=== PATIENT | male | born 1980 | race African-American/Black ===

== ENCOUNTER 2017-09-04 14:34 | Observation (INO) | payer OTHER ==
[2017-09-04] MEDS ORDERED: guaiFENesin 200 MG/10 ML 10 ML UNIT-DOSE CUPS PO ONE (15:59)
--- NOTE | 2017-09-04 15:59 | PDOC ---
History of Present Illness - General History Source: Patient Exam Limitations: No Limitations - History of Present Illness Initial Comments: 09/04/17 16:08 Patient is a 37 y/o M PMH HIV, Hep C, Depression, methamphetamine abuse, who presents to the ED today stating he is seeking rehab for his methamphetamine abuse. He states he recently started using one month ago because his depression relapsed. He currently takes no medication for his depression as he does not like the way the medication makes him feel. He does not feel safe at home; states that he does not get support from his family other than his mother and he is afraid to go home at this time. Patient's mother also called the ED to say how he is "very sick" and his depression is getting worse. She is very concerned about her son. The patient denies suicidal/homicidal, audio/visual hallucinations. He is tearful and quiet talking about his meth abuse. States he has been using daily for the last month. Last dose was last night. He also admits to cold like symptoms including congestion, pleuritic chest pain and cough. <Sharon Matos - Last Filed: 09/04/17 19:28> <Carolina Paulino - Last Filed: 09/07/17 09:42> - General Chief Complaint: Pain Stated Complaint: detox/ CHEST PAIN Time Seen by Provider: 09/04/17 14:56 Past History - Travel Traveled outside of the country in the last 30 days: No Close contact w/someone who was outside of country & ill: No - Past Medical History COPD: No Diabetes: No Liver Disease: Yes (hep c) - Suicide/Smoking/Psychosocial Hx Smoking History: Former smoker Have you smoked in the past 12 months: Yes Number of Cigarettes Smoked Daily: 6 Information on smoking cessation initiated: Yes Hx Alcohol Use: No Drug/Substance Use Hx: Yes (amphatamines) Substance Use Type: Marijuana Hx Substance Use Treatment: No <Sharon Matos - Last Filed: 09/04/17 19:28> <Carolina Paulino - Last Filed: 09/07/17 09:42> - Past Medical History Allergies/Adverse Reactions: Allergies Allergy/AdvReac Type Severity Reaction Status Date / Time No Known Allergies Allergy Verified 09/04/17 14:39 Home Medications: Ambulatory Orders Elviteg/Cob/Emtri/Tenof Alafen [Genvoya (Non-Formulary)] 1 each PO DAILY #30 tab 06/21/17 Review of Systems - Review of Systems Able to Perform ROS?: Yes Comments:: 09/04/17 17:14 CONSTITUTIONAL: Absent: fever, chills, diaphoresis, generalized weakness, malaise, loss of appetite HEENT: Present: rhinorrhea, nasal congestion, Absent: throat pain, throat swelling, difficulty swallowing, mouth swelling, ear pain, eye pain, visual Changes CARDIOVASCULAR: Present: pleuritic chest pain Absent: loss of consciousness, palpitations, irregular heart rate, peripheral edema RESPIRATORY: Present: cough Absent: shortness of breath, dyspnea with exertion, orthopnea, wheezing, stridor, hemoptysis GASTROINTESTINAL: Absent: abdominal pain, abdominal distension, nausea, vomiting, diarrhea, constipation, melena, hematochezia GENITOURINARY: Absent: dysuria, frequency, urgency, hesitancy, hematuria, flank pain, genital pain MUSCULOSKELETAL: Absent: myalgia, arthralgia, joint swelling SKIN: Absent: rash, itching, pallor HEMATOLOGIC/IMMUNOLOGIC: Absent: easy bleeding, easy bruising, lymphadenopathy, frequent infections ENDOCRINE: Absent: unexplained weight gain, unexplained weight loss, heat intolerance, cold intolerance NEUROLOGIC: Absent: headache, focal weakness or paresthesias, dizziness, unsteady gait, seizure, mental status changes, bladder or bowel incontinence PSYCHIATRIC: Present: Depression, substance abuse (meth, weed)Absent: anxiety, suicidal or homicidal ideation, hallucinations. Is the patient limited Citizen Of [place] proficient: No <Sharon Matos - Last Filed: 09/04/17 19:28> *Physical Exam - Vital Signs Last Vital Signs Temp Pulse Resp BP Pulse Ox 97.7 F 88 18 119/79 100 09/04/17 14:41 09/04/17 14:41 09/04/17 14:41 09/04/17 14:41 09/04/17 14:41 - Physical Exam Comments: 09/04/17 16:16 GENERAL: Well developed, well nourished. Awake and alertx3. No acute distress. Speaking in full sentences. Gross L eye swelling HEENT: Normocephalic, atraumatic. PERRLA, EOMI. No conjunctival pallor. Sclera are non- icteric. Moist mucous membranes. Oropharynx is clear. NECK: Supple. Full ROM. No JVD. Carotid pulses 2+ and symmetric, without bruits. No thyromegaly. No lymphadenopathy. CARDIOVASCULAR: Regular rate and rhythm. No murmurs, rubs, or gallops. Distal pulses are 2+ and symmetric. PULMONARY: No evidence of respiratory distress. Lungs clear to auscultation bilaterally. No wheezing, rales or rhonchi. ABDOMINAL: Soft. Non-tender. Non-distended. No rebound or guarding. No organomegaly. Normoactive bowel sounds. MUSCULOSKELETAL Normal range of motion at all joints. No bony deformities or tenderness. No CVA tenderness. EXTREMITIES: No cyanosis. No clubbing. No edema. No calf tenderness. SKIN: Warm and dry. Normal capillary refill. No rashes. No jaundice. NEUROLOGICAL: Alert, awake, appropriate. Cranial nerves 2-12 intact. No deficits to light touch and temperature in face, upper extremities and lower extremities. No motor deficits in the in face, upper extremities and lower extremities. Normoreflexic in the upper and lower extremities. Normal speech. Toes are down- going bilaterally. Gait is normal without ataxia. PSYCHIATRIC: Cooperative. Poor eye contact. Tearful on exam. States he is very depressed and abusing meth. Denies suicidal/homicidal ideation. does not have a plan. <Sharon Matos - Last Filed: 09/04/17 19:28> - Vital Signs Last Vital Signs Temp Pulse Resp BP Pulse Ox 98.5 F 77 18 132/75 99 09/05/17 06:29 09/05/17 10:15 09/05/17 10:15 09/05/17 10:15 09/05/17 10:15 <Carolina Paulino - Last Filed: 09/07/17 09:42> ED Treatment Course - LABORATORY CBC & Chemistry Diagram: 09/04/17 18:10 09/04/17 18:10 <Sharon Matos - Last Filed: 09/04/17 19:28> - LABORATORY CBC & Chemistry Diagram: 09/05/17 06:00 09/05/17 06:00 - ADDITIONAL ORDERS Additional order review: 09/04/17 18:10 RBC 4.02 MCV 93.8 MCHC 34.3 RDW 13.5 MPV 7.7 Neutrophils % 49.9 Lymphocytes % 39.2 Monocytes % 6.8 Eosinophils % 3.1 Basophils % 1.0 - Medications Given in the ED: ED Medications Discontinued Medications Generic Name Dose Route Start Last Admin Trade Name Maci PRN Reason Stop Dose Admin Guaifenesin 10 ml 09/04/17 15:59 09/04/17 16:20 Robitussin - PO 09/04/17 16:00 10 ml ONCE ONE Administration Magnesium Chloride 64 mg 09/05/17 10:00 09/05/17 10:09 Slow-Mag - PO 64 mg DAILY YANELIS Administration Multivit/Folic Acid/Iron 1 tab 09/05/17 10:00 09/05/17 10:09 Vitamins (Sjr) - PO 1 tab DAILY YANELIS Administration <Carolina Paulino - Last Filed: 09/07/17 09:42> Medical Decision Making - Medical Decision Making 09/04/17 16:17 Patient is a 37 y/o M PMH HIV, Hep C, Depression, methamphetamine abuse, who presents to the ED today with worsening depression stating he is seeking rehab for his methamphetamine abuse. Will call [facility] to see if they accept for admission at this time. Pt. presents with cold like symptoms, however, given chest pain, will r/o ACS although less likely. Lung sounds clear b/l. VSS, afebrile. Plan: Basic labs, EKG, CXR, UA, Utox 09/04/17 16:29 [facility] states that they do not accept patients for admission on Sundays. Do not feel comfortable discharging patient home at this time. Will page [facility] for psych consult at this time. 09/04/17 17:48 Call back from [facility]. Case discussed. Given that patient is having increasing depression, and does not feel safe at home with the context of substance abuse; states that he will come and evaluate the patient in the AM. Is concerned may need inpatient admission for his depression. Will page [facility] for ED OBs Lab work is grossly normal, EKG: NSR rate 79. Normal intervals; normal axis. No ST-T wave changes. Normal EKG 09/04/17 18:02 Microblog sent to [facility]. 09/04/17 19:[address] Tadeo RICHTER. Will evaluate the patient. <Sharon Matos - Last Filed: 09/04/17 19:28> *DC/Admit/Observation/Transfer - Discharge Dispostion Admit: Yes <Sharon Matos - Last Filed: 09/04/17 19:28> - Attestations Physician Attestion: I reviewed the case with the mid-level practitioner and agree with the mid- level practitioner's assessment, diagnosis and disposition. <Carolina Paulino - Last Filed: 09/07/17 09:42> Diagnosis at time of Disposition: Methamphetamine abuse Depression Qualifiers: Depression Type: unspecified Qualified Code(s): F32.9 - Major depressive disorder, single episode, unspecified - Discharge Dispostion Disposition: HOME Condition at time of disposition: Stable
[2017-09-04] MEDS ORDERED: guaiFENesin 200 MG/10 ML 10 ML UNIT-DOSE CUPS ONE (16:16)
[2017-09-04 18:21] LABS: EOS % 3.1 % (0-4.5); HEMATOCRIT 37.8 % (35.4-49); LYMPH % 39.2 % (8-40); MCH 32.2 pg (25.7-33.7); MCHC 34.3 g/dl (32.0-35.9); MEAN CELL VOLUME 93.8 fl (80-96); MEAN PLT VOLUME 7.7 fl (7.5-11.1); MONO % 6.8 % (3.8-10.2); NEUT % 49.9 % (42.8-82.8); PLATELET COUNT 221 K/MM3 (134-434); RBC 4.02 M/mm3 (4.00-5.60); RDW 13.5 % (11.9-15.9); WHITE BLOOD COUNT 4.2 K/mm3 (4.0-10.0)
[2017-09-04 18:23] LABS: URINE APPEARANCE CLEAR; URINE BILIRUBIN NEGATIVE (NEGATIVE); URINE BLOOD NEGATIVE (NEGATIVE); URINE COLOR YELLOW; URINE GLUCOSE (UA) NEGATIVE (NEGATIVE); URINE KETONE NEGATIVE (NEGATIVE); URINE LEUK ESTERASE NEGATIVE (NEGATIVE); URINE NITRITE NEGATIVE (NEGATIVE); URINE PROTEIN NEGATIVE (NEGATIVE); URINE UROBILINOGEN 4.0 E.U/dl mg/dL (0.2-1.0)
[2017-09-04 18:35] LABS: COCAINE, UR NEGATIVE ng/ml (CUTOFF=300); METHADONE, UR NEGATIVE ng/ml (CUTOFF=300); OPIATES, URI NEGATIVE ng/ml (CUTOFF=300); PHENCYCLIDINE,URINE NEGATIVE ng/ml (CUTOFF=25); URINE AMPHETAMINES POSITIVE ng/ml (CUTOFF=500); URINE BARBITURATES NEGATIVE ng/ml (CUTOFF=200); URINE BENZODIAZEPINES NEGATIVE ng/ml (CUTOFF=200)
[2017-09-04 18:52] LABS: ALBUMIN 3.2 g/dl (3.4-5.0); ALK PHOS 113 U/L (45-117); ANION GAP 5 (8-16); BILIRUBIN,TOTAL 0.3 mg/dL (0.2-1.0); BLOOD UREA NITROGEN 13 mg/dL (7-18); CALCIUM 7.9 mg/dL (8.5-10.1); CHLORIDE 108 mmol/L (98-107); CO2 29 mmol/L (21-32); GLUCOSE,RANDOM 82 mg/dL (74-106); POTASSIUM 4.1 mmol/L (3.5-5.1); SGOT/AST 42 U/L (15-37); SGPT/ALT 60 U/L (12-78); SODIUM 142 mmol/L (136-145)
--- NOTE | 2017-09-04 19:23 | PN ---
Teaching Attending Note Name of Resident: Gino Carson ATTENDING PHYSICIAN STATEMENT I saw and evaluated the patient. I reviewed the resident's note and discussed the case with the resident. I agree with the resident's findings and plan as documented. SUBJECTIVE: 37 yo M Pmhx. of HIV, Hep. C, depression, meth. abuse, who presents seeking rehab for his meth. abuse. Notes he started abusing one month ago, States that his depression caused him to use. States he doesnt feel safe or supported at home. Denies suicidal/homocidal thoughts, States he has had daily use X1 month. Does not want to hurt himself or anyone else. OBJECTIVE: Physical: VS: Vital Signs Period Temp Pulse Resp BP Sys/Larkin Pulse Ox Last 24 Hr 97.7 F 83-88 18 119-136/79-81 98-100 GEN: NAD, resting in bed, AA0x3 HEENT: NCAT, PERRL, Throat without erythema or exudates CARD: RRR S1, S2 RESP: CTAB ABD: BSx4, NTD to palpation EXT: - C/C/E CBCD WBC 4.2 K/mm3 (4.0-10.0) 09/04/17 18:10 RBC 4.02 M/mm3 (4.00-5.60) 09/04/17 18:10 Hgb 13.0 GM/dL (11.7-16.9) 09/04/17 18:10 Hct 37.8 % (35.4-49) 09/04/17 18:10 MCV 93.8 fl (80-96) 09/04/17 18:10 MCHC 34.3 g/dl (32.0-35.9) 09/04/17 18:10 RDW 13.5 % (11.9-15.9) 09/04/17 18:10 Plt Count 221 K/MM3 (134-434) 09/04/17 18:10 MPV 7.7 fl (7.5-11.1) 09/04/17 18:10 CMP Sodium 142 mmol/L (136-145) 09/04/17 18:10 Potassium 4.1 mmol/L (3.5-5.1) 09/04/17 18:10 Chloride 108 mmol/L (98-107) H 09/04/17 18:10 Carbon Dioxide 29 mmol/L (21-32) 09/04/17 18:10 Anion Gap 5 (8-16) L 09/04/17 18:10 BUN 13 mg/dL (7-18) D 09/04/17 18:10 Creatinine 1.0 mg/dL (0.7-1.3) 09/04/17 18:10 Creat Clearance w eGFR > 60 (>60) 09/04/17 18:10 Random Glucose 82 mg/dL (74-106) 09/04/17 18:10 Calcium 7.9 mg/dL (8.5-10.1) L 09/04/17 18:10 Total Bilirubin 0.3 mg/dL (0.2-1.0) D 09/04/17 18:10 AST 42 U/L (15-37) H D 09/04/17 18:10 ALT 60 U/L (12-78) D 09/04/17 18:10 Alkaline Phosphatase 113 U/L (45-117) D 09/04/17 18:10 Total Protein 7.0 g/dl (6.4-8.2) 09/04/17 18:10 Albumin 3.2 g/dl (3.4-5.0) L 09/04/17 18:10 CARDIAC ENZYMES Creatine Kinase 164 IU/L (39-308) 09/04/17 18:10 Troponin I < 0.02 ng/ml (0.00-0.05) 09/04/17 18:10 Urine Test Results Urine Color Yellow 09/04/17 18:20 Urine Appearance Clear 09/04/17 18:20 Urine pH 5.0 (5.0-8.0) D 09/04/17 18:20 Ur Specific [place] 1.025 (1.001-1.035) 09/04/17 18:20 Urine Protein Negative (NEGATIVE) 09/04/17 18:20 Urine Glucose (UA) Negative (NEGATIVE) 09/04/17 18:20 Urine Ketones Negative (NEGATIVE) 09/04/17 18:20 Urine Blood Negative (NEGATIVE) 09/04/17 18:20 Urine Nitrite Negative (NEGATIVE) 09/04/17 18:20 Urine Bilirubin Negative (NEGATIVE) 09/04/17 18:20 Ur Leukocyte Esterase Negative (NEGATIVE) 09/04/17 18:20 Home Medications Medication Instructions Recorded Elviteg/Cob/Emtri/Tenof Alafen 1 each PO DAILY #30 tab 06/21/17 [Genvoya Tablet] ASSESSMENT AND PLAN: 37 yo M Pmhx. of HIV, Hep. C, depression, meth. abuse, who presents seeking rehab for his meth. abuse, also states he is depressed and feels unsafe at home. 1.) Poly-Substance Abuse - Psych. Consult - 1:1 If suicidal/homicidal ideation 2.) Depression - Meds as per Psych - EKG 3.) HIV - C/W Genvoya - PIO w. Outpt. ID 4.) Dvt Ppx - Ambulate Place in Obs
--- NOTE | 2017-09-04 20:43 | HP ---
CHIEF COMPLAINT: Depression PCP: Franny Hugo HISTORY OF PRESENT ILLNESS: The patient is a 37 yo m w/ PMH HIV and Hep C who comes into the ED seeking detoxification from methamphetamine. The patient states that he had been feeling increasingly depressed at home and has started using methamphetamine over the past month, Patient uses daily with last use being yesterday evening. Patient denies suicidal or homicidal ideation. Patient denies auditory or visual hallucinations. Patient also c/o cough productive of a small amount of green sputum. Patient denies fever, chills, nausea, vomiting, diarrhea or sick contacts. ER course was notable for: (1) CXR negative (2) (3) Recent Travel: none PAST MEDICAL HISTORY: HIV HCV PAST SURGICAL HISTORY: none Social History: Smoking: smokes 6 cigarettes per day for the past 4 months Alcohol: denies Drugs: smokes methamphetamine daily for the past 1 months. Smokes marijuana socially Family History: 2 cousins and father with prostate cancer Allergies No Known Allergies Allergy (Verified 09/04/17 14:39) HOME MEDICATIONS: Home Medications Medication Instructions Recorded Elviteg/Cob/Emtri/Tenof Alafen 1 each PO DAILY #30 tab 06/21/17 [Genvoya Tablet] REVIEW OF SYSTEMS CONSTITUTIONAL: Absent: fever, chills, diaphoresis, generalized weakness, malaise, loss of appetite, weight change HEENT: Absent: rhinorrhea, nasal congestion, throat pain, throat swelling, difficulty swallowing, mouth swelling, ear pain, eye pain, visual changes CARDIOVASCULAR: Absent: chest pain, syncope, palpitations, irregular heart rate, lightheadedness , peripheral edema RESPIRATORY: Absent: cough, shortness of breath, dyspnea with exertion, orthopnea, wheezing, stridor, hemoptysis GASTROINTESTINAL: Absent: abdominal pain, abdominal distension, nausea, vomiting, diarrhea, constipation, melena, hematochezia GENITOURINARY: Absent: dysuria, frequency, urgency, hesitancy, hematuria, flank pain, genital pain MUSCULOSKELETAL: Absent: myalgia, arthralgia, joint swelling, back pain, neck pain SKIN: Absent: rash, itching, pallor HEMATOLOGIC/IMMUNOLOGIC: Absent: easy bleeding, easy bruising, lymphadenopathy, frequent infections ENDOCRINE: Absent: unexplained weight gain, unexplained weight loss, heat intolerance, cold intolerance NEUROLOGIC: Absent: headache, focal weakness or paresthesias, dizziness, unsteady gait, seizure, mental status changes, bladder or bowel incontinence PSYCHIATRIC: Absent: anxiety, depression, suicidal or homicidal ideation, hallucinations. PHYSICAL EXAMINATION Vital Signs - 24 hr 09/04/17 09/04/17 14:41 18:15 Temperature 97.7 F Pulse Rate 88 Pulse Rate [ 83 Apical] Respiratory 18 Rate Blood Pressure 119/79 Blood Pressure 136/81 [Left Arm] O2 Sat by Pulse 100 98 Oximetry (%) GENERAL: Awake, alert, and fully oriented, in no acute distress. HEAD: Normal with no signs of trauma. EYES: Pupils equal, round and reactive to light, extraocular movements intact, sclera anicteric, conjunctiva clear. No lid lag. LUNGS: Breath sounds equal, clear to auscultation bilaterally. No wheezes, and no crackles. No accessory muscle use. HEART: Regular rate and rhythm, normal S1 and S2 without murmur, rub or gallop. ABDOMEN: Soft, nontender, not distended, normoactive bowel sounds, no guarding, no rebound, no masses. No hepatomegaly or splenomegaly. LOWER EXTREMITIES: 2+ pulses, warm, well-perfused. No calf tenderness. No peripheral edema. NEUROLOGICAL: Cranial nerves II-X intact. Normal speech. PSYCHIATRIC: Cooperative. Good eye contact. Appropriate mood and affect. Patient denies suicidal and homicidal ideation. SKIN: Warm, dry, normal turgor, no rashes or lesions noted, normal capillary refill. Laboratory Results - last 24 hr 09/04/17 09/04/17 09/04/17 18:10 18:10 18:10 WBC 4.2 RBC 4.02 Hgb 13.0 Hct 37.8 MCV 93.8 MCH 32.2 MCHC 34.3 RDW 13.5 Plt Count 221 MPV 7.7 Neutrophils % 49.9 Lymphocytes % 39.2 Monocytes % 6.8 Eosinophils % 3.1 Basophils % 1.0 Sodium 142 Potassium 4.1 Chloride 108 H Carbon Dioxide 29 Anion Gap 5 L BUN 13 D Creatinine 1.0 Creat Clearance w eGFR > 60 Random Glucose 82 Calcium 7.9 L Total Bilirubin 0.3 D AST 42 H D ALT 60 D Alkaline Phosphatase 113 D Creatine Kinase 164 Troponin I < 0.02 Total Protein 7.0 Albumin 3.2 L Urine Color Urine Appearance Urine pH Ur Specific [place] Urine Protein Urine Glucose (UA) Urine Ketones Urine Blood Urine Nitrite Urine Bilirubin Urine Urobilinogen Ur Leukocyte Esterase Opiates Screen Methadone Screen Barbiturate Screen Phencyclidine Screen Ur Amphetamines Screen MDMA (Ecstasy) Screen Benzodiazepines Screen Cocaine Screen U Marijuana (THC) Screen 09/04/17 09/04/17 18:10 18:20 WBC RBC Hgb Hct MCV MCH MCHC RDW Plt Count MPV Neutrophils % Lymphocytes % Monocytes % Eosinophils % Basophils % Sodium Potassium Chloride Carbon Dioxide Anion Gap BUN Creatinine Creat Clearance w eGFR Random Glucose Calcium Total Bilirubin AST ALT Alkaline Phosphatase Creatine Kinase Troponin I Total Protein Albumin Urine Color Yellow Urine Appearance Clear Urine pH 5.0 D Ur Specific [place] 1.025 Urine Protein Negative Urine Glucose (UA) Negative Urine Ketones Negative Urine Blood Negative Urine Nitrite Negative Urine Bilirubin Negative Urine Urobilinogen 4.0 e.u/dl Ur Leukocyte Esterase Negative Opiates Screen Negative Methadone Screen Negative Barbiturate Screen Negative Phencyclidine Screen Negative Ur Amphetamines Screen Positive MDMA (Ecstasy) Screen Negative Benzodiazepines Screen Negative Cocaine Screen Negative U Marijuana (THC) Screen Positive ASSESSMENT/PLAN: The patient is a 37 yo m w/ PMH HIV, HCV who comes to the ED seeking detoxification from methamphetamine. #Methamphetamine abuse 2/2 worsening depression -psych consult, aware -Patient denies suicidal or homicidal ideation -detox consult -monitor for signs of withdrawal #HIV positive -last CD4 234 -follows with [facility] -encouraged need for regular outpatient follow up and CD4 counts -encouraged medication compliance. -continue HAART #FEN -no fluids indicated -lytes WNL -regular diet #Prophy -patient ambulatory #Dispo -admit for observation and psych clearance. Visit type - Emergency Visit Emergency Visit: Yes Care time: The patient presented to the Emergency Department on the above date and was hospitalized for further evaluation of their emergent condition. - New Patient This patient is new to me today: Yes Date on this admission: 09/04/17 - Critical Care Critical Care patient: No Hospitalist Screening - Colonoscopy Questionnaire Colonoscopy Questionnaire: Colonoscopy Questionnaire - Patient: 50 - 75 years old and never had a screening colonoscopy: Unknown History of colon or rectal polyps, or CA: Unknown History of IBD, Crohn's disease or UC: Unknown History of abdominal radiation therapy as a child: Unknown - Relative: 1 with colon or rectal CA, or polyps at age 60 or younger: Unknown Colon or rectal CA diagnosed at age 45 or younger: Unknown Multiple relatives with colon or rectal CA: Unknown - Outcome: Screening Result: Negative Screen
[2017-09-05 06:05] LABS: HEMATOCRIT 35.6 % (35.4-49); HEMOGLOBIN 12.1 GM/dL (11.7-16.9); MEAN CELL VOLUME 94.1 fl (80-96); MEAN PLT VOLUME 7.5 fl (7.5-11.1); PLATELET COUNT 220 K/MM3 (134-434); RBC 3.79 M/mm3 (4.00-5.60); RDW 13.5 % (11.9-15.9); WHITE BLOOD COUNT 3.8 K/mm3 (4.0-10.0)
[2017-09-05 06:30] VITALS: TEMP 98.5
[2017-09-05 07:10] LABS: ALBUMIN 2.9 g/dl (3.4-5.0); ALK PHOS 94 U/L (45-117); ANION GAP 4 (8-16); BILIRUBIN,TOTAL 0.3 mg/dL (0.2-1.0); BLOOD UREA NITROGEN 15 mg/dL (7-18); CALCIUM 7.6 mg/dL (8.5-10.1); CHLORIDE 107 mmol/L (98-107); CO2 29 mmol/L (21-32); GLUCOSE,RANDOM 83 mg/dL (74-106); MAGNESIUM 1.5 mg/dL (1.8-2.4); PHOSPHOROUS 3.1 mg/dL (2.5-4.9); POTASSIUM 4.2 mmol/L (3.5-5.1); SGOT/AST 32 U/L (15-37); SGPT/ALT 51 U/L (12-78); SODIUM 140 mmol/L (136-145); TOT PROT 6.2 g/dl (6.4-8.2)
--- NOTE | 2017-09-05 09:14 | CONSULT ---
Consult [facility]ox [facility] Reason for Current Admission/Consult: substance use Referred by:: Bryan remy MD - History History of Present Illness: Patient discharged prior to completion of consultation, discussed with medical residennt, referred to [facility] for either intensive outpatient treatment or inpatient rehab if patient chooses. - Alcohol/Substance Use Hx Alcohol Use: No
[2017-09-05] MEDS ORDERED: ZOLPIDEM TARTRATE 5 MG TABLET PO PRN (09:15)
[2017-09-05] MEDS ORDERED: MAGNESIUM CL 64 MG TABLET.SA PO SCH (10:00)
[2017-09-05] MEDS ORDERED: PATIENT'S OWN MEDICATION (NON-FORMULARY) (Elviteg/Cob/Emtri/Tenof Alafen [Genvoya (Non-For PO SCH (10:00)
[2017-09-05] MEDS ORDERED: PRENATAL VITAMINS W/ FOLIC ACID TABLET (FP) PO SCH (10:00)
--- NOTE | 2017-09-05 10:46 | EKG ---
Test Reason : Blood Pressure : / mmHG Vent. Rate : 079 BPM Atrial Rate : 079 BPM P-R Int : 152 ms QRS Dur : 088 ms QT Int : 384 ms P-R-T Axes : 068 060 055 degrees QTc Int : 440 ms NORMAL SINUS RHYTHM NORMAL ECG WHEN COMPARED WITH ECG OF 21-JUN-2017 15:03, NO SIGNIFICANT CHANGE WAS FOUND Confirmed by CHRIS WEAVER MD ([id number]) on 09/05/2017 10:45:46 AM Referred By: Confirmed By:CHRIS WEAVER MD
[2017-09-05 10:55] VITALS: BP 132/75; PULSE 77; BMI 25.0
--- NOTE | 2017-09-05 11:55 | PN ---
Teaching Attending Note Name of Resident: Chris Abdullahi ATTENDING PHYSICIAN STATEMENT I saw and evaluated the patient. I reviewed the resident's note and discussed the case with the resident. I agree with the resident's findings and plan as documented. SUBJECTIVE: OBJECTIVE: Vital Signs Temperature 98.5 F 09/05/17 06:29 Pulse Rate 77 09/05/17 10:15 Respiratory Rate 18 09/05/17 10:15 Blood Pressure 132/75 09/05/17 10:15 O2 Sat by Pulse Oximetry (%) 99 09/05/17 10:15 CBCD WBC 3.8 K/mm3 (4.0-10.0) L 09/05/17 06:00 RBC 3.79 M/mm3 (4.00-5.60) L 09/05/17 06:00 Hgb 12.1 GM/dL (11.7-16.9) 09/05/17 06:00 Hct 35.6 % (35.4-49) 09/05/17 06:00 MCV 94.1 fl (80-96) 09/05/17 06:00 MCHC 34.0 g/dl (32.0-35.9) 09/05/17 06:00 RDW 13.5 % (11.9-15.9) 09/05/17 06:00 Plt Count 220 K/MM3 (134-434) 09/05/17 06:00 MPV 7.5 fl (7.5-11.1) 09/05/17 06:00 CMP Sodium 140 mmol/L (136-145) 09/05/17 06:00 Potassium 4.2 mmol/L (3.5-5.1) 09/05/17 06:00 Chloride 107 mmol/L (98-107) 09/05/17 06:00 Carbon Dioxide 29 mmol/L (21-32) 09/05/17 06:00 Anion Gap 4 (8-16) L 09/05/17 06:00 BUN 15 mg/dL (7-18) 09/05/17 06:00 Creatinine 1.0 mg/dL (0.7-1.3) 09/05/17 06:00 Creat Clearance w eGFR > 60 (>60) 09/05/17 06:00 Random Glucose 83 mg/dL (74-106) 09/05/17 06:00 Calcium 7.6 mg/dL (8.5-10.1) L 09/05/17 06:00 Total Bilirubin 0.3 mg/dL (0.2-1.0) 09/05/17 06:00 AST 32 U/L (15-37) D 09/05/17 06:00 ALT 51 U/L (12-78) 09/05/17 06:00 Alkaline Phosphatase 94 U/L (45-117) 09/05/17 06:00 Total Protein 6.2 g/dl (6.4-8.2) L 09/05/17 06:00 Albumin 2.9 g/dl (3.4-5.0) L 09/05/17 06:00 CARDIAC ENZYMES Creatine Kinase 164 IU/L (39-308) 09/04/17 18:10 Troponin I < 0.02 ng/ml (0.00-0.05) 09/04/17 18:10 Current Medications Generic Name Dose Route Start Last Admin Trade Name Freq PRN Reason Stop Dose Admin Magnesium Chloride 64 mg 09/05/17 10:00 09/05/17 10:09 Slow-Mag - PO 64 mg DAILY YANELIS Administration Non-Formulary Medication 1 each 09/05/17 10:00 Elviteg/Cob/Emtri/Tenof Alafen [Genvoya (Non-Formulary)] PO DAILY YANELIS Multivit/Folic Acid/Iron 1 tab 09/05/17 10:00 09/05/17 10:09 Vitamins (Sjr) - PO 1 tab DAILY YANELIS Administration Thiamine HCl 100 mg 09/05/17 22:00 Vitamin B1 - PO HS YANELIS Zolpidem Tartrate 10 mg 09/05/17 09:15 Ambien - PO HS PRN INSOMNIA Home Medications Medication Instructions Recorded Elviteg/Cob/Emtri/Tenof Alafen 1 each PO DAILY #30 tab 06/21/17 [Genvoya (Non-Formulary)] ASSESSMENT AND PLAN:
--- NOTE | 2017-09-05 11:56 | CON.PSY ---
Psychiatry Consult Chief Complaint: I Am not depressed, I am not suicidal, you are lying to me. I want to go and see my medical Doctor. I dont want to kill myself. Symptoms: reports: Depressed Mood, Irritability - Previous Psychiatric Treatment Outpatient: None Inpatient: None - Previous Substance Abuse Treatment Outpatient: Less than 6 mos ago Inpatient: None - Reason for Previous Treatment Reason for Previous Treatment: Drug Abuse - Current Medications Current Medications: Active Medications Magnesium Chloride (Slow-Mag -) 64 mg PO DAILY [facility] Last Admin: 09/05/17 10:09 Dose: 64 mg Non-Formulary Medication (Elviteg/Cob/Emtri/Tenof Alafen [Genvoya (Non-Formulary )]) 1 each PO DAILY [facility] Multivit/Folic Acid/Iron ( Vitamins (Sjr) -) 1 tab PO DAILY [facility] Last Admin: 09/05/17 10:09 Dose: 1 tab Thiamine HCl (Vitamin B1 -) 100 mg PO HS [facility] Zolpidem Tartrate (Ambien -) 10 mg PO HS PRN PRN Reason: INSOMNIA - Allergies Allergies: Allergies Allergy/AdvReac Type Severity Reaction Status Date / Time No Known Allergies Allergy Verified 09/04/17 14:39 - Current Living Status Usual Living Arrangement: With Parent - Current Mental Status Evaluation Appearance: Well Groomed Attitude: Uncooperative - Affect Affect: Constrictive Appropriateness: Appropriate to Content - Mood Mood: Angry - Speech/Language Expressive: Coherent - Psychomotor Activity Psychomotor Activity: Normal - Thought Process Thought Process: Intact - Thought Content Hallucinations: Absent Delusions: Absent - Self Perception Self Perception: No Impairment - Cognition Attention: Alert Orientation: Time Memory, Immediate Recall: Intact Memory, Short Term: 3/3 Memory, Remote with Promptin/3 - Concentration Serial Sevens Intact: Yes Simple Calculations Intact: Yes - Abstraction Proverb Interpretation: Intact Judgement: Minimally Impaired - Insight Insight: Intact - Impulse Control Impulse Control: Minimally Impaired - Suicidal Ideation Suicidal Ideation: No - Homicidal Ideation Homicidal Ideation: No Assessment/Plan 1) No acute mental illness. 2) Discharge from ER when medically clear.
--- NOTE | 2017-09-05 14:28 | DS ---
Physical Exam: SUBJECTIVE: Patient seen at bedside. Patient refused history because he states that too many doctors have spoken to him already. OBJECTIVE: Vital Signs Period Temp Pulse Resp BP Sys/Larkin Pulse Ox Last 24 Hr 97.7 F-98.5 F 77-88 18-19 100-136/75-81 98-100 PHYSICAL EXAM Unable to perform due to patient refusal. LABS Laboratory Results - last 24 hr 09/04/17 09/04/17 09/04/17 18:10 18:10 18:10 WBC 4.2 RBC 4.02 Hgb 13.0 Hct 37.8 MCV 93.8 MCH 32.2 MCHC 34.3 RDW 13.5 Plt Count 221 MPV 7.7 Neutrophils % 49.9 Lymphocytes % 39.2 Monocytes % 6.8 Eosinophils % 3.1 Basophils % 1.0 Sodium 142 Potassium 4.1 Chloride 108 H Carbon Dioxide 29 Anion Gap 5 L BUN 13 D Creatinine 1.0 Creat Clearance w eGFR > 60 Random Glucose 82 Calcium 7.9 L Phosphorus Magnesium Total Bilirubin 0.3 D AST 42 H D ALT 60 D Alkaline Phosphatase 113 D Creatine Kinase 164 Creatine Kinase Index 1.8 CK-MB (CK-2) 3.104 Troponin I < 0.02 Total Protein 7.0 Albumin 3.2 L Urine Color Urine Appearance Urine pH Ur Specific [place] Urine Protein Urine Glucose (UA) Urine Ketones Urine Blood Urine Nitrite Urine Bilirubin Urine Urobilinogen Ur Leukocyte Esterase Opiates Screen Methadone Screen Barbiturate Screen Phencyclidine Screen Ur Amphetamines Screen MDMA (Ecstasy) Screen Benzodiazepines Screen Cocaine Screen U Marijuana (THC) Screen 09/04/17 09/04/17 09/05/17 18:10 18:20 06:00 WBC 3.8 L RBC 3.79 L Hgb 12.1 Hct 35.6 MCV 94.1 MCH 32.0 MCHC 34.0 RDW 13.5 Plt Count 220 MPV 7.5 Neutrophils % Lymphocytes % Monocytes % Eosinophils % Basophils % Sodium Potassium Chloride Carbon Dioxide Anion Gap BUN Creatinine Creat Clearance w eGFR Random Glucose Calcium Phosphorus Magnesium Total Bilirubin AST ALT Alkaline Phosphatase Creatine Kinase Creatine Kinase Index CK-MB (CK-2) Troponin I Total Protein Albumin Urine Color Yellow Urine Appearance Clear Urine pH 5.0 D Ur Specific [place] 1.025 Urine Protein Negative Urine Glucose (UA) Negative Urine Ketones Negative Urine Blood Negative Urine Nitrite Negative Urine Bilirubin Negative Urine Urobilinogen 4.0 e.u/dl Ur Leukocyte Esterase Negative Opiates Screen Negative Methadone Screen Negative Barbiturate Screen Negative Phencyclidine Screen Negative Ur Amphetamines Screen Positive MDMA (Ecstasy) Screen Negative Benzodiazepines Screen Negative Cocaine Screen Negative U Marijuana (THC) Screen Positive 09/05/17 06:00 WBC RBC Hgb Hct MCV MCH MCHC RDW Plt Count MPV Neutrophils % Lymphocytes % Monocytes % Eosinophils % Basophils % Sodium 140 Potassium 4.2 Chloride 107 Carbon Dioxide 29 Anion Gap 4 L BUN 15 Creatinine 1.0 Creat Clearance w eGFR > 60 Random Glucose 83 Calcium 7.6 L Phosphorus 3.1 Magnesium 1.5 L Total Bilirubin 0.3 AST 32 D ALT 51 Alkaline Phosphatase 94 Creatine Kinase Creatine Kinase Index CK-MB (CK-2) Troponin I Total Protein 6.2 L Albumin 2.9 L Urine Color Urine Appearance Urine pH Ur Specific [place] Urine Protein Urine Glucose (UA) Urine Ketones Urine Blood Urine Nitrite Urine Bilirubin Urine Urobilinogen Ur Leukocyte Esterase Opiates Screen Methadone Screen Barbiturate Screen Phencyclidine Screen Ur Amphetamines Screen MDMA (Ecstasy) Screen Benzodiazepines Screen Cocaine Screen U Marijuana (THC) Screen HOSPITAL COURSE: Date of Admission:09/04/17 37 year old male with a hx of HIV/HepC presented to the hospital for detox from methamphetamines. Patient is not in any distress and had no medical complaints. Patient's vitals an dlabs were within normal limits. Detox physician was consulted. Patient was cleared for discharged and referred to rehabilitation facilities for further care. Date of Discharge: 09/05/17 Minutes to complete discharge: 35 <Chris Abdullahi - Last Filed: 09/05/17 14:20> Physical Exam: Agree with the resident's plan. can be discharged home and follow up with Rehab. <Harsha Hitchcock - Last Filed: 09/05/17 17:04> Discharge Summary Reason For Visit: DEPRESSION, METHAMPHETAMINE ABUSE Current Active Problems Depression (Acute) Methamphetamine abuse (Acute) - Home Medications Comprehensive Discharge Medication List: Ambulatory Orders Elviteg/Cob/Emtri/Tenof Alafen [Genvoya (Non-Formulary)] 1 each PO DAILY #30 tab 06/21/17 <Chris Abdullahi - Last Filed: 09/05/17 14:20> - Home Medications Comprehensive Discharge Medication List: Ambulatory Orders Elviteg/Cob/Emtri/Tenof Alafen [Genvoya (Non-Formulary)] 1 each PO DAILY #30 tab 06/21/17 <Harsha Hitchcock - Last Filed: 09/05/17 17:04> Condition: Stable - Instructions Diet, Activity, Other Instructions: You were admitted to the hospital for detoxification. You are medically clear for discharge, however we recommend you get placed at a rehabilitation facility. Medical Recommendations: -It is important not to use any more illicit substances, they can be detrimental to your health. -If you experience any chest pain, shortness of breath, fevers, chills, nausea, vomiting, diarrhea, please return to the emergency room immediately. Make an appointment with your primary care physician within 1 month of discharge to follow up on your annual health Referrals: Husam Mota MD [Staff Physician] - Disposition: HOME This patient is new to me today: Yes Date on this admission: 09/05/17 Emergency Visit: Yes ED Registration Date: 09/04/17 Care time: The patient presented to the Emergency Department on the above date and was hospitalized for further evaluation of their emergent condition. Critical Care patient: No - Discharge Referral Referred to [facility] No <Chris Abdullahi - Last Filed: 09/05/17 14:20>
[2017-09-05] MEDS ORDERED: THIAMINE HCL 100 MG TABLET (FP) PO SCH (22:00)
== END 2017-09-05 12:45 | disposition home or self-care (01) ==
LOC: JER 14:34 → JERBED 19:29
PROVIDERS: ADMIT Internal Medicine; ATTEND Internal Medicine
DX: F15.10 Other stimulant abuse, uncomplicated (principal); F32.9 Major depressive disorder, single episode, unspecified; Z21 Asymptomatic human immunodeficiency virus [HIV] infection status; B18.2 Chronic viral hepatitis C; Z87.891 Personal history of nicotine dependence
CPT/HCPCS: 36415; 71046-TC-FY; 80053; 80307; 81003; 82550; 82553; 83735; 84100; 84484; 85025; 85027; 93005; 93010; 99283-25; G0378

== ENCOUNTER 2017-09-08 09:09 | Inpatient (IN) | payer OTHER ==
[2017-09-08 11:20] VITALS: BMI 27.2
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
[2017-09-08] MEDS ORDERED: NICOTINE POLACRILEX 2 MG GUM BUC PRN (11:47)
[2017-09-08] MEDS ORDERED: MENTHOL/PHENOL 1 EACH UD MM PRN (11:47)
[2017-09-08] MEDS ORDERED: MAG HYDROX/AL HYDROX/SIMETH 30 ML UNIT-DOSE CUP PO PRN (11:47)
[2017-09-08] MEDS ORDERED: hydrOXYzine PAMOATE 50 MG CAPSULE (FP) PO PRN (11:47)
[2017-09-08] MEDS ORDERED: IBUPROFEN 400 MG TABLET (FP) PO PRN (11:47)
[2017-09-08] MEDS ORDERED: MAGNESIUM HYDROX 2400MG/30ML ORAL SUSPENSION 30 ML CUP PO PRN (11:47)
[2017-09-08] MEDS ORDERED: guaiFENesin/D-METHORPHAN HB 10 ML UNIT-DOSE CUPS PO PRN (11:47)
[2017-09-08] MEDS ORDERED: LOPERAMIDE HCL 2 MG CAPSULE PO PRN (11:47)
[2017-09-08] MEDS ORDERED: ACETAMINOPHEN 325 MG TABLET (FP) PO PRN (11:47)
[2017-09-08] MEDS ORDERED: P-EPHED 60MG/TRIPROLIDI 2.5MG TABLET PO PRN (11:47)
[2017-09-08] MEDS ORDERED: MAGNESIUM CITRATE 300 ML BOTTLE PO PRN (11:47)
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
[2017-09-08 17:13] LABS: URINE APPEARANCE CLEAR; URINE BILIRUBIN NEGATIVE (NEGATIVE); URINE BLOOD NEGATIVE (NEGATIVE); URINE COLOR YELLOW; URINE GLUCOSE (UA) NEGATIVE (NEGATIVE); URINE KETONE NEGATIVE (NEGATIVE); URINE LEUK ESTERASE NEGATIVE (NEGATIVE); URINE NITRITE NEGATIVE (NEGATIVE); URINE PROTEIN NEGATIVE (NEGATIVE)
[2017-09-08] MEDS: THIAMINE HCL 100 MG TABLET (FP) PO SCH (22:28)
[2017-09-09] MEDS ORDERED: PT OWN MED DRAWER 7, Y5N ONE (08:48)
[2017-09-09] MEDS: PRENATAL VITAMINS W/ FOLIC ACID TABLET (FP) PO SCH (09:43)
[2017-09-09] MEDS: ELVITEG/COB/EMTRI/TENOF (GENVOYA) TABLET (NF) PO SCH (09:43)
--- NOTE | 2017-09-09 09:48 | EKG ---
Test Reason : Blood Pressure : / mmHG Vent. Rate : 078 BPM Atrial Rate : 078 BPM P-R Int : 164 ms QRS Dur : 086 ms QT Int : 366 ms P-R-T Axes : 060 055 044 degrees QTc Int : 417 ms NORMAL SINUS RHYTHM NORMAL ECG WHEN COMPARED WITH ECG OF 04-SEP-2017 16:14, NO SIGNIFICANT CHANGE WAS FOUND Confirmed by RAY BARROW MD ([id number]) on 09/09/2017 9:47:37 AM Referred By: Confirmed By:RAY BARROW MD
[2017-09-09] MEDS: SUVOREXANT 10 MG TABLET PO PRN (21:28)
[2017-09-09] MEDS: THIAMINE HCL 100 MG TABLET (FP) PO SCH (21:28)
[2017-09-10] MEDS: PRENATAL VITAMINS W/ FOLIC ACID TABLET (FP) PO SCH (09:38)
[2017-09-10] MEDS: ELVITEG/COB/EMTRI/TENOF (GENVOYA) TABLET (NF) PO SCH (09:38)
[2017-09-10] MEDS: THIAMINE HCL 100 MG TABLET (FP) PO SCH (21:07)
[2017-09-10] MEDS: SUVOREXANT 10 MG TABLET PO PRN (21:08)
[2017-09-11] MEDS: PRENATAL VITAMINS W/ FOLIC ACID TABLET (FP) PO SCH (09:36)
[2017-09-11] MEDS: ELVITEG/COB/EMTRI/TENOF (GENVOYA) TABLET (NF) PO SCH (09:36)
[2017-09-11] MEDS ORDERED: SUVOREXANT 10 MG TABLET PO PRN (13:14)
[2017-09-11] MEDS: THIAMINE HCL 100 MG TABLET (FP) PO SCH (21:00)
[2017-09-12] MEDS: PRENATAL VITAMINS W/ FOLIC ACID TABLET (FP) PO SCH (09:38)
[2017-09-12] MEDS: ELVITEG/COB/EMTRI/TENOF (GENVOYA) TABLET (NF) PO SCH (09:38)
[2017-09-12] MEDS ORDERED: SUVOREXANT 10 MG TABLET PO PRN ×2 (10:09→21:07)
--- NOTE | 2017-09-12 10:14 | PN ---
Psychiatric Progress Note Vital Signs: Vital Signs Period Temp Pulse Resp BP Sys/Larkin Pulse Ox Last 24 Hr 97.4 F 82 17-18 115/69 Date of Session: 09/12/17 Chief Complaint:: Insomnia HPI: Patient addressing Opoid, Cannabis Dependence comorbid with Nicotine Dependence, Substance-Induced Sleep Disorder ROS: Anemia, HTN, HIV, Hep C Current Medications: Active Medications Generic Name Dose Route Start Last Admin Trade Name Freq PRN Reason Stop Dose Admin Acetaminophen 650 mg 09/08/17 11:47 Tylenol - PO Q4H PRN FEVER Al Hydroxide/Mg Hydroxide 30 ml 09/08/17 11:47 Mylanta Oral Suspension - PO Q6H PRN DYSPEPSIA Elvitegravir/Cobicis/Emtricit/Tenof 1 tab 09/09/17 10:00 09/12/17 09:38 Genvoya (Non-Formulary) PO 1 tab DAILY YANELIS Administration Eucalyptus/Menthol/Phenol/Sorbitol 1 each 09/08/17 11:47 Cepastat Lozenge - MM Q4H PRN SORE THROAT Guaifenesin 10 ml 09/08/17 11:47 Robitussin Dm - PO Q6H PRN COUGH Hydroxyzine Pamoate 50 mg 09/08/17 11:47 Vistaril - PO Q4H PRN AGITATION Ibuprofen 400 mg 09/08/17 11:47 Motrin - PO Q6H PRN Pain level 4-6 Loperamide HCl 4 mg 09/08/17 11:47 Imodium - PO Q6H PRN DIARRHEA Magnesium Citrate 300 ml 09/08/17 11:47 Citroma - PO Q48H PRN CONSTIPATION Magnesium Hydroxide 30 ml 09/08/17 11:47 Milk Of Magnesia - PO DAILY PRN CONSTIPATION Nicotine Polacrilex 2 mg 09/08/17 11:47 09/09/17 14:54 Nicorette Gum - BUC 2 mg Q2H PRN Administration NICOTINE REPLACEMENT RX Multivit/Folic Acid/Iron 1 tab 09/09/17 10:00 09/12/17 09:38 Vitamins (Sjr) - PO 1 tab DAILY YANELIS Administration Pseudoephedrine/Triprolidine 1 combo 09/08/17 11:47 Actifed - PO TID PRN NASAL CONGESTION Thiamine HCl 100 mg 09/08/17 22:00 09/11/17 21:00 Vitamin B1 - PO 100 mg HS YANELIS Administration Current Side Effect: No Lab tests ordered: Yes Lab tests reviewed: Yes Provider note:: Patient reports experiencing difficulty to sleep. 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 despite taking Belsomra 10 mg po HS Total face to face time:: 15 Mental Status Exam - Mental Status Exam Alert and Oriented to: Time, Place, Person Cognitive Function: Fair Patient Appearance: Well Groomed Mood: Hopeful, Euthymic Affect: Appropriate Patient Behavior: Cooperative Speech Pattern: Clear Voice Loudness: Normal Thought Process: Intact, Goal Oriented Thought Disorder: Not Present Hallucinations: Denies Suicidal Ideation: Denies Homicidal Ideation: Denies Insight/Judgement: Fair Sleep: Poorly Appetite: Good Muscle strength/Tone: Normal Gait/Station: Normal Psychiatric Treatment Plan - Problem List (1) Opioid dependence Current Visit: Yes (2) Cannabis dependence Current Visit: Yes (3) Nicotine dependence Current Visit: Yes (4) Substance-induced sleep disorder Current Visit: Yes (5) Chronic hepatitis C Current Visit: No Comment: tasneem 1a; VL [id number], Fibrosure - F0-F1, AFP 8.6 discussed availability of tx, importance of f/u, monitoring, adherence once on tx and need for monitoring while on tx refer for abd u/s (6) H/O syphilis Current Visit: No Comment: per JOSE: treated w/ 1 injection of pcn 07/26/14 at [facility] in [place], [place], initial titers 07/2014- 1:512; 01/01/15 - 1:16 ; 01/20/15 - 1:8. 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 2) Start Belsomra 15 mg po HS prn for insomnia. 3) Monirtor progress
[2017-09-12] MEDS: THIAMINE HCL 100 MG TABLET (FP) PO SCH (21:13)
[2017-09-12] MEDS ORDERED: SUVOREXANT 10 MG, SUVOREXANT 5 MG PO PRN (22:00)
[2017-09-13 06:21] VITALS: BP 118/69; PULSE 90; TEMP 97.8
[2017-09-13] MEDS: ELVITEG/COB/EMTRI/TENOF (GENVOYA) TABLET (NF) PO SCH (09:39)
[2017-09-13] MEDS: PRENATAL VITAMINS W/ FOLIC ACID TABLET (FP) PO SCH (09:39)
--- NOTE | 2017-09-13 12:07 | PN ---
Psychiatric Progress Note Vital Signs: Vital Signs Period Temp Pulse Resp BP Sys/Larkin Pulse Ox Last 24 Hr 97.8 F 90 18-18 118/69 Date of Session: 09/13/17 Chief Complaint:: AMA Discharge Note HPI: Patient addressing Methamphetamine and Cannabis Dependence comorbid with Nicotine Dependence and Substance-Induced Sleep Disorder ROS: Anemia, HIV, Hep C, H/O OR Current Side Effect: No Lab tests ordered: Yes Lab tests reviewed: Yes Provider note:: Patient has not completed this program. He wants to leave against medical advice saying:" This program is not for me. I made a mistake coming here" He was determined to leave despite encouragement to say to complete this program. He is stable for discharge AMA Total face to face time:: 25 Mental Status Exam - Mental Status Exam Alert and Oriented to: Time, Place, Person Cognitive Function: Fair Patient Appearance: Well Groomed Mood: Hopeful, Euthymic Affect: Appropriate Patient Behavior: Cooperative Speech Pattern: Clear Voice Loudness: Normal Thought Process: Intact, Goal Oriented Thought Disorder: Not Present Hallucinations: Denies Suicidal Ideation: Denies Homicidal Ideation: Denies Insight/Judgement: Fair Sleep: Fair Appetite: Good Muscle strength/Tone: Normal Gait/Station: Normal Psychiatric Treatment Plan - Problem List (5) Chronic hepatitis C Comment: tasneem 1a; VL [id number], Fibrosure - F0-F1, AFP 8.6 discussed availability of tx, importance of f/u, monitoring, adherence once on tx and need for monitoring while on tx refer for abd u/s (6) H/O syphilis Comment: per JOSE: treated w/ 1 injection of pcn 07/26/14 at [facility] in [place], [place], initial titers 07/2014- 1:512; 01/01/15 - 1:16; 01/20/15 - 1:8. (7) Human immunodeficiency virus (HIV) disease Comment: on Genv[employer] -resistance assay - pansensitive; check VL discussed adherence, benefits/goals of tx, importance of f/u and monitoring, safe sex, condom use (8) Hypertension Comment: diet controlled (9) Anemia Comment: f/u next visit - further anemia work-up; pt declined labs today (10) Chlamydial infection of genitourinary tract Comment: azithromycin 500mg 2 tabs po x 1; discussed medical sales specialist, se, and ae, avoid unprotected sexual activity for at least 7d after tx, partner notification and tx, safe sex, condom use, prevention of hiv/sti transmission (11) Gonorrhea Comment: Tx - ceftriaxone 250mg IM x 1, azithromycin 500mg 2 tabs po x 1; discussed medical sales specialist, se, and ae, safe sex, condom use, partner notification and tx, avoid sexual activity for 7 d following tx (12) History of OR (myocardial infarction) Comment: requested ecg - declines today; refer to cardio Initial treatment plan: Patient is discharged AMS today
== END 2017-09-13 11:30 | disposition left against medical advice (07) | DRG 770 ==
LOC: YASAS 09:09 → Y3W 12:03
PROVIDERS: ADMIT Psychiatry & Neurology Psychiatry; ATTEND Psychiatry & Neurology Psychiatry
PROC: HZ42ZZZ Group Counseling for Substance Abuse Treatment, Cognitive-Behavioral (ICD-10-PCS; principal; 2017-09-08)
DX: F11.20 Opioid dependence, uncomplicated (principal); F12.20 Cannabis dependence, uncomplicated; F17.210 Nicotine dependence, cigarettes, uncomplicated; F19.282 Other psychoactive substance dependence with psychoactive substance-induced sleep disorder; I10 Essential (primary) hypertension; Z21 Asymptomatic human immunodeficiency virus [HIV] infection status; B18.2 Chronic viral hepatitis C; D64.9 Anemia, unspecified; I25.2 Old myocardial infarction; A56.2 Chlamydial infection of genitourinary tract, unspecified; A54.9 Gonococcal infection, unspecified; Z87.438 Personal history of other diseases of male genital organs
CPT/HCPCS: 81003; 93005; 93010

== ENCOUNTER 2018-03-10 06:47 | Emergency (ER) | payer OTHER ==
[2018-03-10 07:16] VITALS: BP 123/72; PULSE 70; BMI 28.7
--- NOTE | 2018-03-10 07:55 | PDOC ---
Attending Attestation - Resident Resident Name: Max Berrios - ED Attending Attestation I have performed the following: I have examined & evaluated the patient, The case was reviewed & discussed with the resident, I agree w/resident's findings & plan, Exceptions are as noted - HPI HPI: 03/10/18 07:47 38-year-old male with no past medical history presents with right foot pain for 2 days. The patient reports that he was at the gym when a 40 pound weight fell on his right foot. 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 Denies numbness or weakness. Patient has been able to work carrying weights but reports persistent pain, came to the ER for further evaluation. - Physicial Exam PE: 03/10/18 07:48 GENERAL: Awake, alert, and fully oriented, in no acute distress HEAD: No signs of trauma EYES: EOMI, sclera anicteric, conjunctiva clear ENT: Auricles normal inspection, hearing grossly normal, nares patent NECK: Normal ROM, supple EXTREMITIES: Normal range of motion, no edema. No clubbing or cyanosis. No cords, erythema, or tenderness RLE: 2+ DP pulse. Sensation intact throughout. Tender to palpation on dorsum surface over 3rd and 4th metatarsal. < 2 se ccap refill. No ankle tenderness or joint instability. NEUROLOGICAL: Cranial nerves II through XII grossly intact. Normal speech SKIN: Warm, Dry, normal turgor, no rashes or lesions noted. - Medical Decision Making 03/10/18 07:55 38 year old male with R foot injury. Obtain radiograph to r/o R foot fracture. 03/10/18 08:23 Xray negative. MSK foot pain. RICE therapy. RETA wrap. NSAIDS F/u with orthopedics if persistent pain > 2 weeks.
--- NOTE | 2018-03-10 08:03 | PDOC ---
History of Present Illness - General Chief Complaint: Pain, Acute Stated Complaint: PAIN/SWELLING RT FOOT Time Seen by Provider: 03/10/18 07:23 History Source: Patient Exam Limitations: No Limitations - History of Present Illness Initial Comments: 03/10/18 07:55 38 yo male no significant pmh presents to the ED after dropping a 40 lbs weight on his right foot 2 days ago. Patient able to ambulate and work a full 12 hour shift on his feet yesterday. Patient wrapped foot with RETA bandage, no ice or medication for pain. Pain is located around the base of all 5 the metatarsals and extends to the distal end of the metatarsals but does not involve either malleolus or toes. Pain is described as sharp, non radiating 8/10 and made worse with flexion/extension and inversion. Denies weakness in the toes and all other ROS Past History - Past Medical History Allergies/Adverse Reactions: Allergies Allergy/AdvReac Type Severity Reaction Status Date / Time No Known Allergies Allergy Verified 03/10/18 07:06 Home Medications: Ambulatory Orders Valacyclovir HCl [Valtrex -] 500 mg PO BID #14 tablet 11/02/17 Docusate Sodium [Colace -] 100 mg PO TID #90 capsule 11/10/17 Darunavir/Cobicistat [Prezcobix 800 mg-150 mg Tablet] 1 each PO DAILY #30 tablet 01/03/18 Emtricitab/Rilpiviri/Tenof Ala [Odefsey Tablet] 1 each PO DAILY #30 tablet 01/03 Loratadine [Claritin -] 10 mg PO DAILY PRN 01/03/18 Multivitamin,Ther and Minerals [Vitamin and Minerals] 1 each PO DAILY #30 tablet 01/03/18 Anemia: No Asthma: No Cancer: No Cardiac Disorders: No CVA: No COPD: No CHF: No DVT: No Dementia: No Diabetes: No GI Disorders: No Disorders: No HTN: No Hypercholesterolemia: No Liver Disease: Yes (hep c) Seizures: No Thyroid Disease: No - Surgical History Abdominal Surgery: No Appendectomy: No Cardiac Surgery: No Cholecystectomy: No Lung Surgery: No Neurologic Surgery: No Orthopedic Surgery: No - Suicide/Smoking/Psychosocial Hx Smoking History: Current every day smoker Have you smoked in the past 12 months: Yes Number of Cigarettes Smoked Daily: 10 Information on smoking cessation initiated: No 'Breaking Loose' booklet given: 09/08/17 Hx Alcohol Use: No Drug/Substance Use Hx: No Substance Use Type: None Hx Substance Use Treatment: No Review of Systems - Review of Systems Constitutional: No: Chills, Fever Respiratory: No: Shortness of Breath Cardiac (ROS): No: Chest Pain ABD/GI: No: Nausea, Vomiting Musculoskeletal: Yes: Other (foot pain). No: Muscle Weakness Integumentary: Yes: Change in Color (red right foot of involoved area) Neurological: No: Numbness, Paresthesia, Tingling, Weakness, Unsteady Gait *Physical Exam - Vital Signs Last Vital Signs Temp Pulse Resp BP Pulse Ox 70 15 123/72 100 03/10/18 07:07 03/10/18 07:07 03/10/18 07:07 03/10/18 07:07 - Physical Exam General Appearance: Yes: Nourished, Appropriately Dressed. No: Apparent Distress Respiratory/Chest: positive: Lungs Clear, Normal Breath Sounds Cardiovascular: positive: Regular Rhythm, Regular Rate, S1, S2. negative: Edema , Murmur Vascular Pulses: Dorsalis-Pedis (R): 4+, Doralis-Pedis (L): 4+ Gastrointestinal/Abdominal: positive: Normal Bowel Sounds, Flat, Soft Musculoskeletal: positive: Other (no swelling noted on exam. Point tenderness starting at the base of all 5 metatarsals extending to the distal end of the metatarsals. No tenderness to either malleolus or toes ) Extremity: positive: Normal Capillary Refill, Other (ROM limited in flexion/ extension and inversion of the right foot and ankle. Pt able to ambulate with normal gait). negative: Pedal Edema, Calf Tenderness, Erythema Integumentary: positive: Normal Color, Dry, Warm Neurologic: positive: Fully Oriented, Alert, Normal Mood/Affect, Normal Response , Motor Strength 5/5. negative: Numbness, Sensory Deficit ED Treatment Course - RADIOLOGY Radiology Studies Ordered: Category Date Time Status FOOT-RIGHT [RAD] Stat Radiology 03/10/18 07:43 Ordered Medical Decision Making - Medical Decision Making 03/10/18 08:12 38 yo male presents to ED after dropping 40 lbs weight onto R foot 2 days ago. Patient able to ambulate without gait dysfunction and did not require pain medication for relief. PE: neurovascularly intact, no weakness compared bilaterally. Foot x ray negative for fracture *DC/Admit/Observation/Transfer Diagnosis at time of Disposition: Foot pain, right - Discharge Dispostion Disposition: HOME Condition at time of disposition: Good Decision to Admit order: No - Referrals Referrals: Franny Hugo NP [Primary Care Provider] - Michael Post MD [Staff Physician] - - Patient Instructions Printed Discharge Instructions: DI for Foot Pain Additional Instructions: Please follow up with your Primary Care Doctor within the week. If the pain persists beyond 1-2 weeks, please follow up with Orthopedics. Take over the counter Motrin for pain control as needed and directed on the package Please come back to the ER if you have persistent pain ad inability to ambulate , weakness in the right foot when compared to the left or excessive swelling. Thank You - Post Discharge Activity Forms/Work/School Notes: Back to Work
== END 2018-03-10 08:47 | disposition home or self-care (01) ==
LOC: JER 06:47
DX: M79.671 Pain in right foot (principal); W20.8XXA Other cause of strike by thrown, projected or falling object, initial encounter; Y93.89 Activity, other specified; Y92.038 Other place in apartment as the place of occurrence of the external cause; Y99.8 Other external cause status; B18.2 Chronic viral hepatitis C
CPT/HCPCS: 73630-TC-RT-FY; 99283-25

== ENCOUNTER 2018-05-20 08:41 | Emergency (ER) | payer OTHER ==
[2018-05-20 08:52] VITALS: BP 131/79; PULSE 76; TEMP 98.4; BMI 27.5
--- NOTE | 2018-05-20 09:13 | PDOC ---
History of Present Illness - General Chief Complaint: Injury Stated Complaint: AJIT KNEE SWELLING Time Seen by Provider: 05/20/18 08:57 History Source: Patient Exam Limitations: No Limitations - History of Present Illness Initial Comments: CHIEF COMPLAINT: 38 y/o afebrile male with PMH HIV, Hep C, Depression, methamphetamine abuse, with injury to left lower leg. HISTORY OF PRESENT ILLNESS: The patient works at a [employer]. A very heavy mixing bowl fell into his left lower leg when he slipped on the floor this morning. He has some swelling and a cut on his left lower leg. He is UTD on tetanus and can walk. Vital signs on arrival are within normal limits. REVIEW OF SYSTEMS: GENERAL/CONSTITUTIONAL: No fever MUSCULOSKELETAL: +left lower leg pain with bruising. No neck or back pain. SKIN: No rash or easy bruising. NEUROLOGIC: No headache, vertigo, loss of consciousness, or loss of sensation. PHYSICAL EXAM: VITAL_SIGNS: within normal limits GENERAL_APPEARANCE: alert, cooperative, no obvious discomfort. The patient is ambulatory with normal gait. MENTAL_STATUS: speech clear, oriented X 3, responds appropriately to questions. NEURO: motor intact and sensory intact in injured extremity. EXTREMITIES: Mild swelling to middle anterior left lower leg with overlying abrasion without active bleeding that is TTP. SKIN: warm, dry, good color. Past History - Past Medical History Allergies/Adverse Reactions: Allergies Allergy/AdvReac Type Severity Reaction Status Date / Time No Known Allergies Allergy Verified 05/20/18 08:51 Home Medications: Ambulatory Orders Valacyclovir HCl [Valtrex -] 500 mg PO BID #14 tablet 11/02/17 Docusate Sodium [Colace -] 100 mg PO TID #90 capsule 11/10/17 Darunavir/Cobicistat [Prezcobix 800 mg-150 mg Tablet] 1 each PO DAILY #30 tablet 01/03/18 Emtricitab/Rilpiviri/Tenof Ala [Odefsey Tablet] 1 each PO DAILY #30 tablet 01/03 Loratadine [Claritin -] 10 mg PO DAILY PRN 01/03/18 Multivitamin,Ther and Minerals [Vitamin and Minerals] 1 each PO DAILY #30 tablet 01/03/18 Darunavir/Cobicistat [Prezcobix 800 mg-150 mg Tablet] 1 each PO DAILY #30 tablet 05/08/18 Emtricitab/Rilpiviri/Tenof Ala [Odefsey Tablet] 1 each PO DAILY #30 tablet 05/08 Anemia: No Asthma: No Cancer: No Cardiac Disorders: No CVA: No COPD: No CHF: No DVT: No Dementia: No Diabetes: No GI Disorders: No Disorders: No HTN: No Hypercholesterolemia: No Liver Disease: Yes (hep c) Seizures: No Thyroid Disease: No - Surgical History Abdominal Surgery: No Appendectomy: No Cardiac Surgery: No Cholecystectomy: No Lung Surgery: No Neurologic Surgery: No Orthopedic Surgery: No - Suicide/Smoking/Psychosocial Hx Smoking History: Current every day smoker Have you smoked in the past 12 months: Yes Number of Cigarettes Smoked Daily: 10 Information on smoking cessation initiated: No 'Breaking Loose' booklet given: 09/08/17 Hx Alcohol Use: No Drug/Substance Use Hx: No Substance Use Type: None Hx Substance Use Treatment: No *Physical Exam - Vital Signs Last Vital Signs Temp Pulse Resp BP Pulse Ox 98.4 F 76 18 131/79 99 05/20/18 08:49 05/20/18 08:49 05/20/18 08:49 05/20/18 08:49 05/20/18 08:49 Medical Decision Making - Medical Decision Making A/P: 38 y/o male with an abrasion and swelling to anterior left lugo. Plan is to clean wound and cover and discharge. Provided patient with supportive care instructions. The patient verbalizes understanding of all instructions, has no further questions and is awaiting discharge. *DC/Admit/Observation/Transfer Diagnosis at time of Disposition: Abrasion, Leg pain, left - Discharge Dispostion Disposition: HOME Condition at time of disposition: Good - Referrals - Patient Instructions Printed Discharge Instructions: DI for Abrasion, DI for Leg Pain Additional Instructions: Discharge Instructions: -Keep wound clean and covered -You can ice the area to help with swelling -You can take motrin if needed for pain -You can go back to work today - Post Discharge Activity Forms/Work/School Notes: Back to Work
== END 2018-05-20 09:22 | disposition home or self-care (01) ==
LOC: JERFT 08:41
DX: S80.812A Abrasion, left lower leg, initial encounter (principal); W01.198A Fall on same level from slipping, tripping and stumbling with subsequent striking against other object, initial encounter; Y93.89 Activity, other specified; Y92.59 Other trade areas as the place of occurrence of the external cause; Y99.0 Civilian activity done for income or pay; B18.2 Chronic viral hepatitis C; F32.9 Major depressive disorder, single episode, unspecified; B20 Human immunodeficiency virus [HIV] disease
CPT/HCPCS: 99281-25

== ENCOUNTER 2018-08-25 06:32 | Emergency (ER) | payer SELFPAY ==
[2018-08-25 06:51] VITALS: TEMP 97.9; BMI 29.3
--- NOTE | 2018-08-25 07:31 | PDOC ---
Attending Attestation - Resident Resident Name: MoyasimIssa - ED Attending Attestation I have performed the following: I have examined & evaluated the patient, The case was reviewed & discussed with the resident, I agree w/resident's findings & plan, Exceptions are as noted - HPI HPI: 08/25/18 07:30 38 y/o afebrile male with PMH HIV, Hep C treated with Harvoni who presents to the ER with a complaint of foot pain Pt states his symptoms began 1 month ago He remembers no injury in particular - no falls, no direct trauma to the foot He presents today because his pain has been persistent and worsening No fevers or chills Foot is swollen Minimal pain in the left foot Pain is sharp/aching, rated 8/10, located in the instep, beneath the lateral malleolus, pain is present at rest or while walking He has not tried taking any pain medications for relief 08/25/18 07:31 08/25/18 07:45 - Physicial Exam PE: 08/25/18 07:31 PHYSICAL EXAM: VITAL_SIGNS: within normal limits GENERAL_APPEARANCE: alert, cooperative, no obvious discomfort. MENTAL_STATUS: speech clear, oriented X 3, responds appropriately to questions. NEURO: motor intact and sensory intact in injured extremity. EXTREMITIES: Mild swelling to right lateral malleolus, 2+ DP, 2+ PT Foot is warm, brisk capillary refill Pt is exquisitely tender to palpation SKIN: warm, dry, good color. 08/25/18 07:47 - Medical Decision Making 08/25/18 07:50 Pt presenting with severe foot pain, no trauma unclear cause of this Fracture (increased risk due to Odefsey), dvt, ligament injury/sprain Will do: Labs Xray Analgesia Re Assess 08/25/18 10:39 Laboratory Tests 05/22/18 05/22/18 05/22/18 12:00 12:00 12:00 WBC 5.8 Hgb 13.6 Hct 39.7 Plt Count 237 Sodium 139 Potassium 4.1 Chloride 104 Carbon Dioxide 29 BUN 18 Creatinine 1.2 Random Glucose 80 08/25/18 08/25/18 08:05 08:05 WBC 6.5 Hgb 14.6 Hct 41.4 Plt Count 211 Sodium 137 Potassium 4.5 Chloride 103 Carbon Dioxide 29 BUN 21 H Creatinine 1.4 H Random Glucose 92 08/25/18 10:39 No fractures seen Recommend hard soled shoe Follow up with podiatry
--- NOTE | 2018-08-25 07:57 | PDOC ---
History of Present Illness - General Chief Complaint: Pain, Acute Stated Complaint: SWELLING,FEET Time Seen by Provider: 08/25/18 07:28 History Source: Patient Exam Limitations: No Limitations - History of Present Illness Initial Comments: 08/25/18 07:48 The patient is a 38M with a PMH of HIV and hep C (currently on treatments) who presents to the ER with complaints of foot pain. The patient states that he's had 1 month of worsening pain and swelling in his R foot, with pain occurring in his L foot yesterday and overnight. 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 He denies any trauma prior to today's presentation (besides the hand etcher helper) or ankle rolling. He does admit to worsening swelling in his legs, especially after standing up for a long time. He states that the pain is usually towards the end of the work day but since yesterday, it has been constant, even when he lays down. Past History - Past Medical History Allergies/Adverse Reactions: Allergies Allergy/AdvReac Type Severity Reaction Status Date / Time No Known Allergies Allergy Verified 08/25/18 06:47 Home Medications: Ambulatory Orders Darunavir/Cobicistat [Prezcobix 800 mg-150 mg Tablet] 1 each PO DAILY #30 tablet 05/22/18 Emtricitab/Rilpiviri/Tenof Ala [Odefsey Tablet] 1 each PO DAILY #30 tablet 05/22 Multivitamin,Ther and Minerals [Vitamin and Minerals] 1 each PO DAILY #30 tablet 05/22/18 Azithromycin [Zithromax] 2 tab PO ONCE #2 tablet 05/24/18 Anemia: No Asthma: No Cancer: No Cardiac Disorders: No CVA: No COPD: No CHF: No DVT: No Dementia: No Diabetes: No GI Disorders: No Disorders: No HTN: No Hypercholesterolemia: No Liver Disease: Yes (hep c) Seizures: No Thyroid Disease: No - Surgical History Abdominal Surgery: No Appendectomy: No Cardiac Surgery: No Cholecystectomy: No Lung Surgery: No Neurologic Surgery: No Orthopedic Surgery: No - Suicide/Smoking/Psychosocial Hx Smoking History: Never smoked Have you smoked in the past 12 months: No Number of Cigarettes Smoked Daily: 10 Information on smoking cessation initiated: No 'Breaking Loose' booklet given: 09/08/17 Hx Alcohol Use: No Drug/Substance Use Hx: No Substance Use Type: None Hx Substance Use Treatment: No Review of Systems - Review of Systems Able to Perform ROS?: Yes Comments:: 08/25/18 07:57 GENERAL/CONSTITUTIONAL: No fever or chills. No weakness. HEAD, EYES, EARS, NOSE AND THROAT: No change in vision. No ear pain or discharge. No sore throat. CARDIOVASCULAR: No chest pain, palpitations, or lightheadedness. RESPIRATORY: No cough, wheezing, shortness of breath, or hemoptysis. GASTROINTESTINAL: No nausea, vomiting, diarrhea, constipation, or abdominal pain. GENITOURINARY: No dysuria, frequency, hematuria, or change in urination. MUSCULOSKELETAL: Positive for b/l foot pain and swelling. No joint or muscle swelling or pain. No neck or back pain. SKIN: No rash or lesions. NEUROLOGIC: No headache, numbness, tingling, focal weakness, loss of consciousness, or change in strength/sensation. Is the patient limited Fijian proficient: No *Physical Exam - Vital Signs Last Vital Signs Temp Pulse Resp BP Pulse Ox 97.9 F 83 18 132/78 98 08/25/18 06:48 08/25/18 06:48 08/25/18 06:48 08/25/18 06:48 08/25/18 06:48 - Physical Exam Comments: 08/25/18 07:59 GENERAL: Well developed, well nourished. Awake and alert. No acute distress. HEENT: Normocephalic, atraumatic. Hearing grossly normal. Moist mucous membranes. NECK: Full ROM. No JVD. MUSCULOSKELETAL: TTP over R metatarsal, lateral and medial foot, as well as ankle and posterior leg. Normal range of motion at all joints. No bony deformities or tenderness. EXTREMITIES: No cyanosis. No clubbing. No edema. No calf tenderness or swelling. SKIN: Warm and dry. Normal capillary refill. No rashes. No jaundice. NEUROLOGICAL: Alert, awake, appropriate. Cranial nerves 2-12 grossly intact. Neurovascularly intact in b/l LE. Normal speech. Gait is ataxic. PSYCHIATRIC: Cooperative. Good eye contact. Appropriate mood and affect. Moderate Sedation - Procedure Monitoring Vital Signs: Procedure Monitoring Vital Signs Temperature 97.9 F 02/22/19 06:48 Pulse Rate 83 08/25/18 06:48 Respiratory Rate 18 08/25/18 06:48 Blood Pressure 132/78 08/25/18 06:48 O2 Sat by Pulse Oximetry (%) 98 08/25/18 06:48 ED Treatment Course - LABORATORY CBC & Chemistry Diagram: 08/25/18 08:05 08/25/18 08:05 - RADIOLOGY Radiology Studies Ordered: Category Date Time Status ANKLE & FOOT-RIGHT* [RAD] Stat Radiology 08/25/18 07:44 Ordered DUPLEX VASCUL US-2LEGS [US] Stat Ultrasound 08/25/18 07:43 Ordered Medical Decision Making - Medical Decision Making 08/25/18 08:01 The patient is a 38M with a PMH of HIV and Hep C who presents to the ER with 1 month of worsening foot pain and swelling. Due to distant history of trauma, will r/o fracture and will r/o DVT d/t possible hypercoagulable state with HIV. Pending labs and imaging. 08/25/18 10:22 CBC, CMP WNL. XR of foot negative. US negative for DVT in b/l LE. Will d/c pt with PCP f/u. *DC/Admit/Observation/Transfer Diagnosis at time of Disposition: Foot pain, bilateral - Discharge Dispostion Disposition: HOME Condition at time of disposition: Stable Decision to Admit order: No - Referrals - Patient Instructions Printed Discharge Instructions: DI for Foot Pain Additional Instructions: Please follow up with your primary care physician in 2-3 days. You had an ultrasound and X-ray done, both of which were normal (meaning no clots or fractures were seen). Please return to the ER if you have any signs or symptoms of chest pain, shortness of breath, uncontrollable fever, chills, nausea, vomiting, numbness, tingling, or weakness in any part of your body, changes in vision, or slurred speech. Please take your medications as prescribed. Please return to the ER if symptoms persist, worsen, or new symptoms arise. - Post Discharge Activity
[2018-08-25] MEDS ORDERED: KETOROLAC TROMETHAMINE 30 MG/1 ML VIAL IVPUSH ONE (08:02)
[2018-08-25] MEDS ORDERED: KETOROLAC TROMETHAMINE 30 MG/1 ML VIAL ONE (08:06)
[2018-08-25] MEDS ORDERED: KETOROLAC TROMETHAMINE 60 MG/2 ML VIAL IM ONE (08:07)
[2018-08-25] MEDS ORDERED: KETOROLAC TROMETHAMINE 60 MG/2 ML VIAL ONE (08:08)
[2018-08-25 08:27] LABS: BASO % 0.4 % (0-2.0); EOS % 3.3 % (0-4.5); HEMATOCRIT 41.4 % (35.4-49); HEMOGLOBIN 14.6 GM/dL (11.7-16.9); LYMPH % 26.9 % (8-40); MCH 33.1 pg (25.7-33.7); MCHC 35.2 g/dl (32.0-35.9); MEAN CELL VOLUME 94.1 fl (80-96); MEAN PLT VOLUME 7.5 fl (7.5-11.1); MONO % 8.2 % (3.8-10.2); NEUT % 61.2 % (42.8-82.8); PLATELET COUNT 211 K/MM3 (134-434); RDW 12.9 % (11.9-15.9); WHITE BLOOD COUNT 6.5 K/mm3 (4.0-10.0)
[2018-08-25 08:50] LABS: ALBUMIN 4.2 g/dl (3.4-5.0); ALK PHOS 79 U/L (45-117); ANION GAP 4 MMOL/L (8-16); BILIRUBIN,TOTAL 0.7 mg/dL (0.2-1); BLOOD UREA NITROGEN 21 mg/dL (7-18); CALCIUM 9.2 mg/dL (8.5-10.1); CHLORIDE 103 mmol/L (98-107); CO2 29 mmol/L (21-32); CREATININE 1.4 mg/dL (0.55-1.3); GLUCOSE,RANDOM 92 mg/dL (74-106); POTASSIUM 4.5 mmol/L (3.5-5.1); SGOT/AST 22 U/L (15-37); SGPT/ALT 21 U/L (13-61); SODIUM 137 mmol/L (136-145); TOT PROT 7.8 g/dl (6.4-8.2)
[2018-08-25 11:39] VITALS: BP 136/75; PULSE 68
== END 2018-08-25 11:39 | disposition home or self-care (01) ==
LOC: JER 06:32
PROC: 3E0233Z Introduction of Anti-inflammatory into Muscle, Percutaneous Approach (ICD-10-PCS; principal; 2018-08-25)
DX: M79.671 Pain in right foot (principal); M79.672 Pain in left foot; R60.0 Localized edema; Z21 Asymptomatic human immunodeficiency virus [HIV] infection status; Z86.19 Personal history of other infectious and parasitic diseases
CPT/HCPCS: 36415; 73610-TC-RT-FY; 73630-TC-RT-FY; 80053; 85025; 93970-TC; 99283-25

== ENCOUNTER 2023-04-27 13:10 | Emergency (ER) | payer OTHER ==
[2023-04-27 13:19] VITALS: BP 123/81; PULSE 80; RESP 16; TEMP 98.2; BMI 28.7
[2023-04-27] MEDS ORDERED: KETOROLAC TROMETHAMINE 10 MG TABLET PO ONE ×2 (13:52→14:04)
[2023-04-27 14:49] LABS: URINE APPEARANCE CLEAR; URINE BILIRUBIN NEGATIVE (NEGATIVE); URINE COLOR YELLOW; URINE GLUCOSE (UA) NEGATIVE (NEGATIVE); URINE KETONE NEGATIVE (NEGATIVE); URINE LEUK ESTERASE NEGATIVE (NEGATIVE); URINE NITRITE NEGATIVE (NEGATIVE); URINE PROTEIN NEGATIVE (NEGATIVE); URINE UROBILINOGEN 0.2 mg/dL (0.2-1.0)
== END 2023-04-27 17:00 | disposition home or self-care (01) ==
LOC: JER 13:10
DX: N50.82 Scrotal pain (principal); N45.1 Epididymitis
CPT/HCPCS: 36415; 76870-TC; 81003; 87086; 87491; 87591; 99284-25

== ENCOUNTER 2024-02-11 09:42 | Emergency (ER) | payer OTHER ==
[2024-02-11 09:48] VITALS: TEMP 98.6; BMI 28.1
[2024-02-11] MEDS ORDERED: ACETAMINOPHEN INJECTION 100 ML IVPB ONE (10:19)
[2024-02-11] MEDS: ACETAMINOPHEN 1000 MG/100 ML BAG IVPB ONE (10:35)
[2024-02-11] MEDS: SODIUM CHLORIDE 1,000 ML IV STA (10:35)
[2024-02-11 10:54] LABS: URINE APPEARANCE CLEAR; URINE BILIRUBIN NEGATIVE (NEGATIVE); URINE COLOR YELLOW; URINE GLUCOSE (UA) NEGATIVE (NEGATIVE); URINE KETONE NEGATIVE (NEGATIVE); URINE LEUK ESTERASE NEGATIVE (NEGATIVE); URINE NITRITE NEGATIVE (NEGATIVE); URINE PROTEIN NEGATIVE (NEGATIVE)
[2024-02-11 10:55] LABS: BASO % 0.8 % (0-2.0); EOS % 2.8 % (0-4.5); HEMATOCRIT 35.6 % (35.4-49); HEMOGLOBIN 12.1 GM/dL (11.7-16.9); LYMPH % 21.2 % (8-40); MCH 31.6 pg (25.7-33.7); MCHC 34.1 g/dl (32.0-35.9); MEAN CELL VOLUME 92.7 fl (80-96); MEAN PLT VOLUME 7.5 fl (7.5-11.1); MONO % 7.4 % (3.8-10.2); NEUT % 67.8 % (42.8-82.8); PLATELET COUNT 206 10^3/uL (134-434); RBC 3.84 M/mm3 (4.00-5.60); RDW 13.3 % (11.9-15.9); WHITE BLOOD COUNT 5.3 K/mm3 (4.0-10.0)
[2024-02-11 11:29] LABS: POTASSIUM 4.5 mmol/L (3.5-5.1)
[2024-02-11 11:31] LABS: ALBUMIN 3.8 g/dl (3.4-5.0); BLOOD UREA NITROGEN 12.8 mg/dL (7-18); CALCIUM 8.8 mg/dL (8.5-10.1)
[2024-02-11 11:35] LABS: CREATININE 1.2 mg/dL (0.55-1.3)
[2024-02-11 11:36] LABS: BILIRUBIN,TOTAL 0.8 mg/dL (0.2-1); TOT PROT 6.4 g/dl (6.4-8.2)
[2024-02-11] MEDS ORDERED: LIDOCAINE 4% PATCH TP ONE (11:39)
[2024-02-11] MEDS: LIDOCAINE 4% PATCH TP ONE (11:42)
[2024-02-11 12:16] VITALS: BP 110/75; PULSE 78; RESP 18
== END 2024-02-11 12:00 | disposition home or self-care (01) ==
LOC: JER 09:42
PROC: 3E033NZ Introduction of Analgesics, Hypnotics, Sedatives into Peripheral Vein, Percutaneous Approach (ICD-10-PCS; principal; 2024-02-11)
PROC: 3E0337Z Introduction of Electrolytic and Water Balance Substance into Peripheral Vein, Percutaneous Approach (ICD-10-PCS; 2024-02-11)
DX: S39.012A Strain of muscle, fascia and tendon of lower back, initial encounter (principal); J06.9 Acute upper respiratory infection, unspecified; R05.9 Cough, unspecified; X58.XXXA Exposure to other specified factors, initial encounter; Z20.822 Contact with and (suspected) exposure to COVID-19
CPT/HCPCS: 0241U-QW; 36415; 71046-TC-FY; 72100-TC-FY; 80053; 81003; 85025; 86803; 87086; 87522; 99284-25; J0131

== ENCOUNTER 2024-10-26 07:06 | Emergency (ER) | payer SELFPAY ==
[2024-10-26 08:03] VITALS: BMI 23.7
[2024-10-26] MEDS ORDERED: LORazepam 2 MG/ML SDV VIAL ONE (08:37)
[2024-10-26 11:00] VITALS: TEMP 98
[2024-10-26 12:21] VITALS: BP 118/76; PULSE 90; RESP 17
== END 2024-10-26 12:15 | disposition home or self-care (01) ==
LOC: JER 07:06
PROC: 3E023GC Introduction of Other Therapeutic Substance into Muscle, Percutaneous Approach (ICD-10-PCS; principal; 2024-10-26)
DX: R06.02 Shortness of breath (principal); F15.929 Other stimulant use, unspecified with intoxication, unspecified; F41.9 Anxiety disorder, unspecified
CPT/HCPCS: 93005; 93010; 99284-25